=== PATIENT | male | born 1960 | race African-American/Black ===

== ENCOUNTER 2025-07-11 16:01 | Emergency (ER) | payer MEDICARE, BC ==
[~2025-07-11] VITALS: Ht 172.7 cm; Wt 91.0 kg
[2025-07-11 16:17] VITALS: O2SAT 98
[2025-07-11 18:22] LABS: COLOR URINE YELLOW (YELLOW); GLUCOSE URINE NEGATIVE (NEGATIVE); KETONES URINE NEGATIVE (NEGATIVE); LEUKOCYTE ESTERASE URINE NEGATIVE (NEGATIVE); NITRITE URINE NEGATIVE (NEGATIVE); OCCULT BLOOD URINE 3+ (NEGATIVE); PH URINE 6.0 (4.5-8.0); PROTEIN URINE NEGATIVE (NEGATIVE); SPECIFIC GRAVITY URINE 1.008 (1.005-1.030); UROBILINOGEN URINE 0.2 E.U./dL (0.2-1.0)
[2025-07-11 18:33] LABS: CLARITY URINE SL HAZY (CLEAR)
[2025-07-11 18:39] LABS: BASOPHILS % 0.4 % (0.0-2.0); EOSINOPHILS % 0.1 % (0.0-5.0); HEMATOCRIT. 43.3 % (42.0-52.0); HEMOGLOBIN. 14.6 g/dL (14.0-18.0); LYMPHOCYTES % 8.7 % (20.0-50.0); MEAN PLATELET VOLUME 9.0 fl (7.4-10.4); MONOCYTES % 9.3 % (2.0-8.0); NEUTROPHILS % 81.5 % (40.0-76.0); PLATELET 216 x1000/uL (130-400); RED BLOOD CELL COUNT 5.06 mill/uL (4.7-6.1); RED CELL DISTRIBUTION WIDTH 14.9 % (11.6-14.6)
[2025-07-11 18:48] LABS: BACTERIA URINE NONE SEEN; RBC URINE 50-100 /hpf (0-2); RENAL EPITHELIAL CELLS URINE FEW /lpf; SQUAMOUS EPITHELIAL CELL URINE NONE SEEN /lpf (RARE/1+); WBC URINE 0-2 /hpf (0-2)
[2025-07-11 18:53] LABS: CREATININE 1.0 mg/dL (0.6-1.3); UREA NITROGEN BLOOD 17 mg/dL (9-23)
[2025-07-11] MEDS: KETOROLAC 30MG/ML VIAL IV SCH (19:30)
[2025-07-11] MEDS: SODIUM CHLORIDE 0.9% 1,000 ML IV ONE (20:43)
[2025-07-11 20:56] VITALS: BP 150/114; PULSE 136; RESP 21; TEMP 36.9; O2SAT 99
== END 2025-07-11 21:01 | disposition left against medical advice (07) ==
LOC: ER 16:01
DX: T83.9XXA Unspecified complication of genitourinary prosthetic device, implant and graft, initial encounter (principal); R33.9 Retention of urine, unspecified; I10 Essential (primary) hypertension; I48.91 Unspecified atrial fibrillation; N40.1 Benign prostatic hyperplasia with lower urinary tract symptoms; Z53.29 Procedure and treatment not carried out because of patient's decision for other reasons; Y92.89 Other specified places as the place of occurrence of the external cause
CPT/HCPCS: 99285; 80048; 81003; 85025; 36415; 51702; 93005; J7030